=== PATIENT | female | born 1995 | race Caucasian/White ===

== ENCOUNTER 2021-05-10 17:16 | Observation (INO) | payer OTHER ==
[~2021-05-10] VITALS: Ht 160 cm; Wt 66.4 kg
[2021-05-10] MEDS ORDERED: YASMIN 3 MG-0.01 TAB PO (17:52)
--- NOTE | 2021-05-10 17:58 | NUR ---
PT IS A/O X4 26 YO FEMALE WELL KEPT AND NOURSHED. RATING PAIN 7/10. NO SKIN ISSUES. ASSESSMENTS COMPLETE, VSS.
[2021-05-10 18:01] VITALS: BP 114/67; PULSE 71; TEMP 98.1
--- NOTE | 2021-05-10 19:45 | NUR ---
Pt. sitting up in bed. Pt. is A&OX3, assessment complete. This nurse attempted to start an IV 3 times. Caesar Piña was in for pre op eval and was able to place a 22g to the lt. wrist with 1 attempt. Pt. rates pain at a 9 on pain scale, gave morphine and scheduled Tylenol. Pt. denies further needs, call light within reach.
[2021-05-10 19:59] VITALS: BP 117/71; PULSE 78; TEMP 97.9
--- NOTE | 2021-05-10 20:42 | NUR ---
Pt. reported that her lt. arm was itching and has a mild rash after recieving morphine through the lt. wrist IV site. Dr. Mary notified. New orders received. Morphine discontinued and added to pt.'s allergy list.
[2021-05-10 23:15] VITALS: BP 108/66; PULSE 72; TEMP 98.4
[2021-05-11 03:19] VITALS: BP 103/55; PULSE 72; TEMP 98
--- NOTE | 2021-05-11 07:17 | NUR ---
Patient is going down to OR at this time, present at bedside
[2021-05-11] MEDS ORDERED: NORCO 325 MG-51 TAB PO (07:49)
[2021-05-11] MEDS ORDERED: PYRIDIUM 100MG100 MG PO (07:49)
[2021-05-11 08:45] VITALS: BP 98/55; PULSE 64; TEMP 97.9
[2021-05-11 09:00] VITALS: BP 95/55; PULSE 65
--- NOTE | 2021-05-11 09:06 | NUR ---
Patient arrived back to room 350 from PACU, alert/oriented, vital signs stable, denies pain at this time, will continue to monitor, in the room
[2021-05-11 09:10] VITALS: TEMP 97.9
--- NOTE | 2021-05-11 09:21 | NUR ---
Assessment completed, patient has is doing well post-op, vitals remain stable, continues to deny pain, Tylenol given, denies N/V and said she will order some food once she wakes up a little more, at bedside
--- NOTE | 2021-05-11 09:27 | NUR ---
Initial visit; Patient thanked [employer] for looking in on her and offering God's blessings and keeping her in [employer]'s prayers.
[2021-05-11 09:41] VITALS: BP 107/62; PULSE 63
--- NOTE | 2021-05-11 10:16 | NUR ---
ALIYAH met with the patient and her , Dimitry (ph#[phone]), to discuss discharge plan. The patient [place] [address] with her . She reports independence with ADLs and does not have any DME. The patient's PCP is Dr. Niki Melvin at [facility] and she receives her medications from [facility] in . The patient does not have a DPOA-HC and she was not interested in completing one at this time. The patient plans to return home with her upon discharge. No additional needs at this time. *Discharge plan: home with *
[2021-05-11 11:12] VITALS: BP 106/56; PULSE 65
--- NOTE | 2021-05-11 11:12 | NUR ---
Patient continues to do well post-op, she is tolerating PO intake, she has been up and voided urine/ slightl blood tinged, pain is controlled and Vital signs stable, will proceed with discharge
--- NOTE | 2021-05-11 12:14 | NUR ---
Discharge instructions/ orders reviewed with the patient and her , instructed to advance diet as tolerated, instructed that she has no acivity restrictions, explaiend that some blood tinged urinantion with burining is not uncommon, insrtucted to drink plenty of water /fluids to keep bladder and kidneys flushed, instructed to follow up with Urology as we have scheduled for her, scripts for Pyridium and NOrco sent to pharmacy for her, IV removed and patient is abmulatory, leaving with and I escorted the mout the door
[2021-05-12] MEDS ORDERED: MOTRIN 800800 MG/TAB PO (15:51)
[2021-05-12] MEDS ORDERED: FLOMAX 0.40.4 MG/CAP PO (15:52)
== END 2021-05-11 12:17 | disposition home or self-care (01) ==
LOC: SURG 17:16
PROVIDERS: ADMIT Urology
DX: N13.2 Hydronephrosis with renal and ureteral calculous obstruction (principal)
CPT/HCPCS: C1769; C1894; G0378; G0379; J1170; J1200; J2270; J2405; J7030; Q9967

== ENCOUNTER 2021-05-12 14:22 | Day surgery (SDC) | payer OTHER ==
[~2021-05-12] VITALS: Ht 160 cm; Wt 64.2 kg
[~2021-05-12 14:22] MED LIST: NORCO 325 MG-51 TAB PO; PYRIDIUM 100MG100 MG PO; YASMIN 3 MG-0.01 TAB PO
[2021-05-12 15:34] VITALS: BP 118/79; PULSE 70; TEMP 98.7
[2021-05-12] MEDS ORDERED: MOTRIN 800800 MG/TAB PO (15:51)
[2021-05-12] MEDS ORDERED: FLOMAX 0.40.4 MG/CAP PO (15:52)
[2021-05-12 17:01] VITALS: TEMP 98.3
[2021-05-12 17:20] VITALS: BP 113/70; PULSE 76
--- NOTE | 2021-05-12 17:20 | NUR ---
Patient returns to room 6 per cart from PACU accompanied by Ana Rosa MAZARIEGOS and is awake and alert. IV fluids infusing. Temp 98.7 and room air sats 100%. Denies pain or nausea. States that she does have a dry scratchy throat. Has been taking ice chips. Given water and applesauce to drink and eat. Spouse in room. Call light in reach.
[2021-05-12 17:35] VITALS: BP 107/60; PULSE 69
--- NOTE | 2021-05-12 17:35 | NUR ---
Tolerates snack and denies pain or nausea.
--- NOTE | 2021-05-12 17:43 | NUR ---
Assisted up to the bathroom and voids. Tolerates activity well. Returns to room. Dresses self. Spouse in room.
--- NOTE | 2021-05-12 17:51 | NUR ---
Dismissal instructions given and signed. IV discontinued. Dressed and ready for discharge.
--- NOTE | 2021-05-12 17:57 | NUR ---
Dismissed to home driven by spouse and assisted into vehicle with instructions in hand.
== END 2021-05-12 17:57 | disposition home or self-care (01) ==
LOC: SDCO 14:22
DX: N13.2 Hydronephrosis with renal and ureteral calculous obstruction (principal); Z20.822 Contact with and (suspected) exposure to COVID-19
CPT/HCPCS: C1769; C2617; J0690; J2704; J3010; J7120; Q9967